=== PATIENT | male | born 1965 | race Caucasian/White ===

== ENCOUNTER 2020-12-09 22:29 | Emergency (ER) | payer OTHER, MEDICAID ==
[~2020-12-09] VITALS: Ht 177.8 cm; Wt 68.0 kg
[2020-12-09 22:48] VITALS: BP 123/84
[2020-12-10] MEDS ORDERED: KETOROLAC TROMETH 60MG/2ML VIAL IM ONE (02:00)
[2020-12-10] MEDS ORDERED: BUTORPHANOL TARTRATE 2 MG/1 ML VIAL IM ONE (02:00)
[2020-12-10] MEDS ORDERED: ACETAMINOPHEN 500 MG TAB PO ONE (02:00)
== END 2020-12-10 03:11 | disposition home or self-care (01) ==
LOC: ER 22:29
DX: G44.309 Post-traumatic headache, unspecified, not intractable (principal); R10.2 Pelvic and perineal pain; M79.605 Pain in left leg; M79.651 Pain in right thigh; F17.210 Nicotine dependence, cigarettes, uncomplicated
CPT/HCPCS: 96372; 99284; J0595; J1885

== ENCOUNTER 2023-01-11 03:21 | Emergency (ER) | payer OTHER, MEDICAID ==
[~2023-01-11] VITALS: Ht 177.8 cm; Wt 75.0 kg
[2023-01-11 03:21] VITALS: RESP 18; O2SAT 97
[2023-01-11] MEDS ORDERED: IBUP-1456 PO (06:37)
[2023-01-11] MEDS ORDERED: METH-1182 PO (06:37)
[2023-01-11 06:42] VITALS: BP 129/87; PULSE 101
[2023-01-11] MEDS ORDERED: KETOROLAC TROMETH 60MG/2ML VIAL IM ONE (06:45)
== END 2023-01-11 06:53 | disposition home or self-care (01) ==
LOC: ER 03:21
DX: S16.1XXA Strain of muscle, fascia and tendon at neck level, initial encounter (principal); S46.811A Strain of other muscles, fascia and tendons at shoulder and upper arm level, right arm, initial encounter; N20.0 Calculus of kidney; F17.210 Nicotine dependence, cigarettes, uncomplicated; Z79.1 Long term (current) use of non-steroidal anti-inflammatories (NSAID); Z79.899 Other long term (current) drug therapy; V49.88XA Car occupant (driver) (passenger) injured in other specified transport accidents, initial encounter; Y93.89 Activity, other specified; Y92.89 Other specified places as the place of occurrence of the external cause; Y99.8 Other external cause status
CPT/HCPCS: 70450; 72125; 72128; 72131; 73030; 96372; 99285; J1885